=== PATIENT | male | born 1955 | race Caucasian/White ===

== ENCOUNTER 2017-12-13 09:29 | Outpatient (CLI) | payer BC | END 2017-12-13 09:30 | disposition critical access hospital (66) | LOC: EMS 09:29 | PROVIDERS: ATTEND Surgery | DX: R46.89 Other symptoms and signs involving appearance and behavior (principal) | CPT/HCPCS: A0425; A0429 ==

== ENCOUNTER 2017-12-13 09:35 | Emergency (ER) | payer BC ==
[2017-12-13] MEDS ORDERED: HALOPERIDOL 5 MG/ML VIAL IM STA ×2 (09:38→12:20)
[2017-12-13] MEDS ORDERED: LORazepam 2 MG/ML VIAL IM STA ×2 (09:38→12:20)
[2017-12-13] MEDS ORDERED: KETAMINE 500 MG/10 ML VIAL IM STA (09:39)
[2017-12-13 10:01] LABS: BASOPHILS # (AUTO) 0.1 10^3/uL (0.0-0.1); BASOPHILS % (AUTO) 0.7 %; EOSINOPHILS # (AUTO) 0.1 10^3/uL (0.0-0.7); EOSINOPHILS % (AUTO) 0.7 %; HGB - HEMOGLOBIN 13.3 g/dL (14.0-18.0); LYMPHOCYTES # (AUTO) 1.3 10^3/uL (1.5-3.5); LYMPHOCYTES % (AUTO) 15.6 %; MEAN CORPUSCULAR HEMOGLOBIN 28.8 pg (27.0-31.0); MEAN CORPUSCULAR HGB CONC 33.9 g/dL (32.0-36.0); MEAN CORPUSCULAR VOLUME 84.9 fL (80.0-94.0); MEAN PLATELET VOLUME 8.1 fL (7.4-11.4); MONOCYTES # (AUTO) 0.5 10^3/uL (0.0-1.0); MONOCYTES % (AUTO) 6.2 %; NEUTROPHILS # (AUTO) 6.3 10^3/uL (1.5-6.6); NEUTROPHILS % (AUTO) 76.8 %; PLT - PLATELET COUNT 245 10^3/uL (130-450); RED BLOOD COUNT 4.61 10^6/uL (4.70-6.10); RED CELL DISTRIBUTION WIDTH 14.5 % (12.0-15.0); WHITE BLOOD COUNT 8.2 x10^3/uL (4.8-10.8)
--- NOTE | 2017-12-13 10:02 | ED Physician Documentation ---
PD HPI MHE - Stated complaint Stated Complaint: MHE - History obtained from History obtained from: EMS - History of Present Illness Primary symptom: Psychosis Timing - onset: Yesterday Pain level max: 0 Pain level now: 0 - Additional information Additional information: Per EMS, family has stated that the patient "had a psychotic break" in the past. Patient is calling people inappropriate names, such as the male medic being called "Nancy" and being the most beautiful woman he has ever seen. Also states that he wants to "fuck Nancy" referring to the male medic. Review of Systems Unable to obtain: AMS PD PAST MEDICAL HISTORY - Past Medical History Cardiovascular: Hypertension - Present Medications Home Medications: Ambulatory Orders Medication Instructions Recorded Confirmed Cetirizine HCl 10 mg PO DAILY 12/13/17 12/13/17 Ketoconazole [Ketoconazole] 1 applic TOP BID 12/13/17 12/13/17 Lansoprazole [Lansoprazole] 15 mg PO QDAC 12/13/17 12/13/17 Losartan Potassium [Cozaar] 100 mg PO DAILY 12/13/17 12/13/17 Meloxicam [Meloxicam] 15 mg PO DAILY 12/13/17 12/13/17 Tamsulosin [Flomax] 0.4 mg PO QDDINNER 12/13/17 12/13/17 Triamcinolone 0.1% Cream [Kenalog 1 applic TOP BID 12/13/17 12/13/17 0.1% Cream] Triamcinolone [Nasacort Aq] 2 sprays GISELLA DAILY 12/13/17 12/13/17 - Allergies Allergies/Adverse Reactions: Allergies Allergy/AdvReac Type Severity Reaction Status Date / Time Penicillins Allergy Severe Unknown Verified 12/13/17 10:17 ibuprofen Allergy Unknown Unknown Verified 12/13/17 10:17 benzonatate AdvReac Intermediate Emesis Verified 12/13/17 10:17 - Living Situation Living Situation: reports: With family Living Arrangement: reports: At home PD ED PE NORMAL - Vitals Vital signs reviewed: Yes - General General: Other (alert, not oriented to person, place or time.) - HEENT HEENT: PERRL, Moist mucous membranes - Neck Neck: Supple, no meningeal sign - Cardiac Cardiac: RRR - Respiratory Respiratory: No respiratory distress, Clear bilaterally - Abdomen Abdomen: Soft, Non tender, Non distended Results - Vitals Vitals: Vital Signs - 24 hr 12/13/17 12/13/17 12/13/17 09:35 10:12 13:06 Temperature 37.2 C Heart Rate 125 H 118 H 108 H Respiratory 20 19 20 Rate Blood Pressure 155/114 H 144/76 H O2 Saturation 94 99 100 12/13/17 12/13/17 12/13/17 13:20 13:24 14:22 Temperature Heart Rate 86 Respiratory 16 Rate Blood Pressure 125/70 O2 Saturation 78 L 98 98 12/13/17 12/13/17 14:41 17:53 Temperature Heart Rate 85 99 Respiratory 16 16 Rate Blood Pressure 127/62 145/75 H O2 Saturation 100 100 Oxygen O2 Source Room air - EKG (time done) 1307 Rate: Rate (enter#) (105) Rhythm: Sinus tachycardia [place]: Normal Intervals: Normal [place], Other (borderline QT prolongation 483) QRS: Normal Ischemia: Normal ST segments 1727 Rate: Rate (enter#) (101) Rhythm: Sinus tachycardia [place]: Normal Intervals: Normal [place] QRS: Normal Ischemia: Normal ST segments - Labs Labs: Laboratory Tests 12/13/17 12/13/17 12/13/17 09:56 09:56 10:00 WBC 8.2 RBC 4.61 L Hgb 13.3 L Hct 39.2 L MCV 84.9 MCH 28.8 MCHC 33.9 RDW 14.5 Plt Count 245 MPV 8.1 Neut # (Auto) 6.3 Lymph # (Auto) 1.3 L [place] # (Auto) 0.5 Eos # (Auto) 0.1 Baso # (Auto) 0.1 Absolute Nucleated RBC 0.00 Nucleated RBC % 0.0 Sodium 134 L Potassium 3.3 L Chloride 103 Carbon Dioxide 22 Anion Gap 9.0 BUN 22 H Creatinine 0.9 Estimated GFR (MDRD) 86 L Glucose 143 H Calcium 8.9 Total Bilirubin 1.0 AST 32 ALT 26 Alkaline Phosphatase 54 Total Protein 7.2 Albumin 4.2 Globulin 3.0 Albumin/Globulin Ratio 1.4 Lipase 26 Urine Color DARK YELLOW Urine Clarity CLEAR Urine pH 5.0 Ur Specific [place] >=1.030 H Urine Protein NEGATIVE Urine Glucose (UA) NEGATIVE Urine Ketones TRACE Urine Occult Blood NEGATIVE Urine Nitrite NEGATIVE Urine Bilirubin NEGATIVE Urine Urobilinogen 0.2 (NORMAL) Ur Leukocyte Esterase NEGATIVE Ur Microscopic Review NOT INDICATED Urine Culture Comments NOT INDICATED Salicylates < 6.0 Urine Opiates Screen NEGATIVE Ur Oxycodone Screen NEGATIVE Urine Methadone Screen NEGATIVE Ur Propoxyphene Screen NEGATIVE Acetaminophen < 10 L Ur Barbiturates Screen NEGATIVE Ur Tricyclics Screen NEGATIVE Ur Phencyclidine Scrn NEGATIVE Ur Amphetamine Screen NEGATIVE U Methamphetamines Scrn NEGATIVE U Benzodiazepines Scrn NEGATIVE Urine Cocaine Screen NEGATIVE U Cannabinoids Screen NEGATIVE Ethyl Alcohol < 5.0 - Rads (name of study) head CT Radiology: Prelim report reviewed, EMP read contemporaneously, See rad report ( no acute abnormalities) duplex US LLE Radiology: Prelim report reviewed, EMP read contemporaneously, See rad report ( no dvt) PD MEDICAL DECISION MAKING - ED course Complexity details: reviewed results, re-evaluated patient, considered differential, d/w family, d/w reimbursement consultant ED course: Patient is a 62-year-old male with what appears to be an acute psychosis. He is actively hallucinating in the emergency department. Initially ketamine was utilized so that we can obtain blood work and urine. He awoke and is still significantly altered and hallucinating. Discussed with his Zakiya who states that this happened once approximately 20-30 years ago when he was "taken away in a straight jacket". She denies any drug use or alcohol use. Patient is medically clear for psychiatric care. [facility] was consulted, Jacki who came and evaluated the patient in the emergency department. Patient slept in the emergency department after receiving Haldol and Ativan. He did awake and was more oriented, but is still very confused and had to ask me my name approximately 4 times during our brief conversation. He also states that he has been treated several times in the past for bipolar disorder. Likely that this episode represented a manic episode. Patient was detained by Jacki, the [facility]. He was accepted to [facility] by Dr. Isaias Bermudez @ [id number]. COBRA forms completed. Patient transferred This document was made in part using voice recognition software. While efforts are made to proofread this document, sound alike and grammatical errors may occur. Departure - Departure Disposition: 65 Psych Hosp/Unit DC/Xfer Clinical Impression: Hallucinations Psychosis Qualifiers: Psychosis type: unspecified psychosis type Qualified Code(s): F29 - Unspecified psychosis not due to a substance or known physiological condition Condition: Stable
[2017-12-13 10:16] LABS: MUDS CUTOFF CONCENTRATIONS CUTOFF CONC BELOW:
[2017-12-13 10:17] LABS: ALBUMIN 4.2 g/dL (3.2-5.5); ALBUMIN/GLOBULIN RATIO 1.4 (1.0-2.2); ALKALINE PHOSPHATASE 54 IU/L (42-121); ALT ALANINE AMINOTRANSFERASE 26 IU/L (10-60); AST ASPARTATE AMINOTRANSFERASE 32 IU/L (10-42); BUN - BLOOD UREA NITROGEN 22 mg/dL (6-20); CALCIUM 8.9 mg/dL (8.5-10.3); CARBON DIOXIDE - CO2 22 mmol/L (21-32); CHLORIDE 103 mmol/L (101-111); CREATININE 0.9 mg/dL (0.6-1.2); GFR - MDRD 86 (>89); GLUCOSE 143 mg/dL (70-100); LIPASE 26 U/L (22-51); SALICYLATE < 6.0 mg/dL; SODIUM 134 mmol/L (135-145); TOTAL PROTEIN 7.2 g/dL (6.7-8.2)
[2017-12-13 10:18] LABS: ACETAMINOPHEN < 10 ug/mL (10-30)
[2017-12-13 10:20] LABS: BILIRUBIN,URINE NEGATIVE (NEGATIVE); GLUCOSE, URINE (UA) NEGATIVE (NEGATIVE); KETONES,URINE (UA) TRACE mg/dL (NEGATIVE); LEUKOCYTE ESTERASE, URINE NEGATIVE (NEGATIVE); NITRITE,URINE NEGATIVE (NEGATIVE); OCCULT BLOOD,URINE NEGATIVE (NEGATIVE); PROTEIN,URINE NEGATIVE (NEGATIVE); UROBILINOGEN,URINE 0.2 (NORMAL) E.U./dL (NORMAL)
[2017-12-13 10:25] LABS: CLARITY,URINE CLEAR (CLEAR)
[2017-12-13 10:44] LABS: AMPHETAMINE SCREEN,URINE NEGATIVE (NEGATIVE); BENZODIAZEPINES SCREEN, URINE NEGATIVE (NEGATIVE); COCAINE SCREEN URINE NEGATIVE (NEGATIVE); METHADONE SCREEN, URINE NEGATIVE (NEGATIVE); METHAMPHETAMINES SCREEN, URINE NEGATIVE (NEGATIVE); OPIATE SCREEN, URINE NEGATIVE (NEGATIVE); OXYCODONE SCREEN, URINE NEGATIVE (NEGATIVE); PROPOXYPHENE SCREEN, URINE NEGATIVE (NEGATIVE); TRICYCLIC ANTIDEPRESSANT,URINE NEGATIVE (NEGATIVE)
--- NOTE | 2017-12-13 10:58 | CT Report ---
EXAM: CT HEAD EXAM DATE: 12/13/2017 10:50 AM. CLINICAL HISTORY: Altered mental status, confusion. COMPARISON: None available. TECHNIQUE: Multiaxial CT images were obtained from the foramen magnum to the vertex. Reformats: Coron al. IV contrast: None. In accordance with CT protocol optimization, one or more of the following dose reduction techniques w ere utilized for this exam: automated exposure control, adjustment of mA and/or KV based on patient s ize, or use of iterative reconstructive technique. FINDINGS: Parenchyma: No intraparenchymal hemorrhage. No evidence of mass, midline shift, or CT findings of inf arction. Tellez-white differentiation is distinct. Extraaxial Spaces: Normal for age. No subdural or epidural collections identified. Ventricles: Normal in size and position. Sinuses and Orbits: Imaged paranasal sinuses, orbits, and mastoids show no significant abnormality. Bones: No evidence of fracture or calvarial defect. Other: None. IMPRESSION: No acute intracranial abnormality. [facility] Referring Provider Line: [phone] SITE ID: [id number]
[2017-12-13] MEDS ORDERED: POTASSIUM BICARB 25 MEQ TABLET PO STA (17:17)
--- NOTE | 2017-12-13 19:02 | Ultrasound Report ---
LEFT LOWER EXTREMITY VENOUS SONOGRAM: 12/13/2017 HISTORY: Left lower extremity swelling after total knee replacement. TECHNIQUE: Real-time scanning by the digital content specialist with saved static images reviewed. FINDINGS: The veins of the left lower extremity including the common femoral, femoral, deep femoral, popliteal, posterior tibial, and peroneal demonstrate normal phasicity, compressibility and augmentation. Normal flow by Doppler imaging. No evidence of venous thrombosis. IMPRESSION: NEGATIVE FOR DEEP VENOUS THROMBOSIS LEFT LOWER EXTREMITY. TD: 12/13/2017 16:10
[2017-12-13 20:20] VITALS: BP 130/89
== END 2017-12-13 20:58 ==
LOC: EDUNIT# → ED 09:35
DX: R44.1 Visual hallucinations (principal); F29 Unspecified psychosis not due to a substance or known physiological condition; I10 Essential (primary) hypertension
CPT/HCPCS: 36415; 51701; 70450; 80053; 80306; 80307; 80320; 80329; 81003; 83690; 85025; 93005; 93971; 96372; 99285; A9270; J2060; 81001; 87086

== ENCOUNTER 2017-12-13 21:02 | Outpatient (CLI) | payer BC | END 2017-12-13 21:03 | LOC: EMS 21:02 | PROVIDERS: ATTEND Surgery | DX: R46.89 Other symptoms and signs involving appearance and behavior (principal) | CPT/HCPCS: A0170; A0425; A0428 ==

== ENCOUNTER 2018-01-04 17:30 | Outpatient (CLI) | payer BC | END 2018-01-04 17:31 | disposition home or self-care (01) | LOC: LAB.R 17:30 | PROVIDERS: ATTEND Family Medicine | DX: N39.0 Urinary tract infection, site not specified (principal) | CPT/HCPCS: 87086; 87181 ==

== ENCOUNTER 2018-01-26 19:57 | Outpatient (CLI) | payer BC, OTHER | END 2018-01-26 19:58 | disposition critical access hospital (66) | LOC: EMS 19:57 | PROVIDERS: ATTEND Surgery | DX: R41.82 Altered mental status, unspecified (principal); R46.89 Other symptoms and signs involving appearance and behavior | CPT/HCPCS: A0425; A0429 ==

== ENCOUNTER 2018-01-26 20:01 | Emergency (ER) | payer OTHER, BC ==
[2018-01-26] MEDS ORDERED: OLANZapine 10 MG VIAL IM STA (20:19)
[2018-01-26 20:22] LABS: BASOPHILS # (AUTO) 0.1 10^3/uL (0.0-0.1); BASOPHILS % (AUTO) 0.7 %; EOSINOPHILS # (AUTO) 0.1 10^3/uL (0.0-0.7); EOSINOPHILS % (AUTO) 1.4 %; HGB - HEMOGLOBIN 13.3 g/dL (14.0-18.0); LYMPHOCYTES # (AUTO) 1.5 10^3/uL (1.5-3.5); LYMPHOCYTES % (AUTO) 19.1 %; MEAN CORPUSCULAR HEMOGLOBIN 28.7 pg (27.0-31.0); MEAN CORPUSCULAR HGB CONC 34.1 g/dL (32.0-36.0); MEAN PLATELET VOLUME 8.3 fL (7.4-11.4); MONOCYTES # (AUTO) 0.7 10^3/uL (0.0-1.0); MONOCYTES % (AUTO) 8.1 %; NEUTROPHILS # (AUTO) 5.7 10^3/uL (1.5-6.6); NEUTROPHILS % (AUTO) 70.7 %; PLT - PLATELET COUNT 206 10^3/uL (130-450); RED BLOOD COUNT 4.63 10^6/uL (4.70-6.10); RED CELL DISTRIBUTION WIDTH 16.4 % (12.0-15.0); WHITE BLOOD COUNT 8.1 x10^3/uL (4.8-10.8)
[2018-01-26 20:33] LABS: ALBUMIN 4.5 g/dL (3.2-5.5); ALBUMIN/GLOBULIN RATIO 1.6 (1.0-2.2); ALKALINE PHOSPHATASE 56 IU/L (42-121); ALT ALANINE AMINOTRANSFERASE 19 IU/L (10-60); AST ASPARTATE AMINOTRANSFERASE 23 IU/L (10-42); BILIRUBIN,TOTAL 0.9 mg/dL (0.2-1.0); BUN - BLOOD UREA NITROGEN 13 mg/dL (6-20); CALCIUM 9.3 mg/dL (8.5-10.3); CARBON DIOXIDE - CO2 25 mmol/L (21-32); CHLORIDE 103 mmol/L (101-111); CREATININE 0.8 mg/dL (0.6-1.2); GFR - MDRD 98 (>89); GLUCOSE 105 mg/dL (70-100); LIPASE 34 U/L (22-51); SODIUM 136 mmol/L (135-145); TOTAL PROTEIN 7.4 g/dL (6.7-8.2)
[2018-01-26] MEDS ORDERED: OLANZapine 10 MG VIAL IM ONE (20:33)
[2018-01-26] MEDS ORDERED: WATER FOR INJECTION,STERILE 10 ML ONE (20:33)
[2018-01-26] MEDS ORDERED: LORazepam 2 MG/ML VIAL IM STA (21:35)
[2018-01-26] MEDS ORDERED: LORazepam 2 MG/ML VIAL ONE (21:49)
[2018-01-26] MEDS: KETAMINE 500 MG/10 ML VIAL IM STA (22:00)
[2018-01-26 22:25] LABS: MUDS CUTOFF CONCENTRATIONS CUTOFF CONC BELOW:
[2018-01-26 22:29] LABS: BILIRUBIN,URINE NEGATIVE (NEGATIVE); GLUCOSE, URINE (UA) NEGATIVE (NEGATIVE); KETONES,URINE (UA) NEGATIVE (NEGATIVE); LEUKOCYTE ESTERASE, URINE NEGATIVE (NEGATIVE); NITRITE,URINE NEGATIVE (NEGATIVE); OCCULT BLOOD,URINE NEGATIVE (NEGATIVE); PROTEIN,URINE NEGATIVE (NEGATIVE); UROBILINOGEN,URINE 0.2 (NORMAL) E.U./dL (NORMAL)
[2018-01-26 22:34] LABS: CLARITY,URINE CLEAR (CLEAR)
[2018-01-26 22:39] LABS: AMPHETAMINE SCREEN,URINE NEGATIVE (NEGATIVE); BENZODIAZEPINES SCREEN, URINE NEGATIVE (NEGATIVE); COCAINE SCREEN URINE NEGATIVE (NEGATIVE); METHADONE SCREEN, URINE NEGATIVE (NEGATIVE); METHAMPHETAMINES SCREEN, URINE NEGATIVE (NEGATIVE); OPIATE SCREEN, URINE NEGATIVE (NEGATIVE); OXYCODONE SCREEN, URINE NEGATIVE (NEGATIVE); PROPOXYPHENE SCREEN, URINE NEGATIVE (NEGATIVE); TRICYCLIC ANTIDEPRESSANT,URINE NEGATIVE (NEGATIVE)
--- NOTE | 2018-01-26 22:44 | ED Physician Documentation ---
PD HPI MHE - Stated complaint Stated Complaint: MHE - Chief complaint Chief Complaint: MHE - History obtained from History obtained from: Police - History of Present Illness Primary symptom: Aggressive behavior Timing - onset: Today Contributing factors: Off meds Recently seen: Not recently seen - Additional information Additional information: Patient is a 62 year male who was brought in by ems for psychosis and aggressive behavior. According to ems police were called by the neighbor because the patient was calling out. When police arrived patient was non sensical and borderline aggressive threatening to take the police's gun. Upon arrival to the emergency department patient was psychotic say "IM not god" im richard twain, and repetitively asking for Madelyn. states that the patient was recently hospitalized at [facility] and has not been taking his meds. Review of Systems Unable to obtain: AMS, Confused PD PAST MEDICAL HISTORY - Past Medical History Cardiovascular: Hypertension Respiratory: Sleep apnea - Past Surgical History Past Surgical History: Yes Ortho: Knee replacement - Present Medications Home Medications: Ambulatory Orders Medication Instructions Recorded Confirmed Cetirizine HCl 10 mg PO DAILY 12/13/17 12/13/17 Ketoconazole [Ketoconazole] 1 applic TOP BID 12/13/17 12/13/17 Lansoprazole [Lansoprazole] 15 mg PO QDAC 12/13/17 12/13/17 Losartan Potassium [Cozaar] 100 mg PO DAILY 12/13/17 12/13/17 Meloxicam [Meloxicam] 15 mg PO DAILY 12/13/17 12/13/17 Tamsulosin [Flomax] 0.4 mg PO QDDINNER 12/13/17 12/13/17 Triamcinolone 0.1% Cream [Kenalog 1 applic TOP BID 12/13/17 12/13/17 0.1% Cream] Triamcinolone [Nasacort Aq] 2 sprays GISELLA DAILY 12/13/17 12/13/17 - Allergies Allergies/Adverse Reactions: Allergies Allergy/AdvReac Type Severity Reaction Status Date / Time Penicillins Allergy Severe Unknown Verified 12/13/17 10:17 ibuprofen Allergy Unknown Unknown Verified 12/13/17 10:17 benzonatate AdvReac Intermediate Emesis Verified 12/13/17 10:17 - Social History Does the pt smoke?: No Smoking Status: Never smoker Does the pt drink ETOH?: No Does the pt have substance abuse?: No - Immunizations Immunizations are current?: Yes - POLST Patient has POLST: No PD ED PE NORMAL - Vitals Vital signs reviewed: Yes - General General: Well developed/nourished - HEENT HEENT: Atraumatic - Cardiac Cardiac: RRR - Respiratory Respiratory: No respiratory distress - Abdomen Abdomen: Non distended PD ED PE EXPANDED - General General: Alert - Extremities Extremities: Pedal edema bilateral - Psych Psych: Combative, Manic, Delusions Results - Vitals Vitals: Vital Signs - 24 hr 01/26/18 01/26/18 01/26/18 20:06 22:05 22:30 Temperature 36.9 C Heart Rate 85 124 H 101 H Respiratory 20 35 H 24 Rate Blood Pressure 139/99 H 158/103 H 126/83 H O2 Saturation 100 100 97 01/26/18 01/27/18 01/27/18 23:00 00:00 01:00 Temperature Heart Rate 86 89 79 Respiratory 18 19 18 Rate Blood Pressure 122/84 H 121/87 H 114/75 O2 Saturation 100 100 98 01/27/18 01/27/18 01/27/18 02:27 03:30 05:02 Temperature Heart Rate 77 80 77 Respiratory 18 18 18 Rate Blood Pressure 124/88 H 124/85 H 124/85 H O2 Saturation 99 98 98 Oxygen O2 Source Room air - Labs Labs: Laboratory Tests 01/26/18 01/26/18 01/26/18 20:16 20:16 20:16 WBC 8.1 RBC 4.63 L Hgb 13.3 L Hct 38.9 L MCV 84.0 MCH 28.7 MCHC 34.1 RDW 16.4 H Plt Count 206 MPV 8.3 Neut # (Auto) 5.7 Lymph # (Auto) 1.5 [place] # (Auto) 0.7 Eos # (Auto) 0.1 Baso # (Auto) 0.1 Absolute Nucleated RBC 0.00 Nucleated RBC % 0.0 Sodium 136 Potassium 4.1 Chloride 103 Carbon Dioxide 25 Anion Gap 8.0 BUN 13 Creatinine 0.8 Estimated GFR (MDRD) 98 Glucose 105 H Lactic Acid 2.2 Calcium 9.3 Total Bilirubin 0.9 AST 23 ALT 19 Alkaline Phosphatase 56 Total Protein 7.4 Albumin 4.5 Globulin 2.9 Albumin/Globulin Ratio 1.6 Lipase 34 Urine Color Urine Clarity Urine pH Ur Specific [place] Urine Protein Urine Glucose (UA) Urine Ketones Urine Occult Blood Urine Nitrite Urine Bilirubin Urine Urobilinogen Ur Leukocyte Esterase Ur Microscopic Review Urine Culture Comments Urine Opiates Screen Ur Oxycodone Screen Urine Methadone Screen Ur Propoxyphene Screen Ur Barbiturates Screen Ur Tricyclics Screen Ur Phencyclidine Scrn Ur Amphetamine Screen U Methamphetamines Scrn U Benzodiazepines Scrn Urine Cocaine Screen U Cannabinoids Screen Ethyl Alcohol < 5.0 01/26/18 01/26/18 22:23 23:25 WBC RBC Hgb Hct MCV MCH MCHC RDW Plt Count MPV Neut # (Auto) Lymph # (Auto) [place] # (Auto) Eos # (Auto) Baso # (Auto) Absolute Nucleated RBC Nucleated RBC % Sodium Potassium Chloride Carbon Dioxide Anion Gap BUN Creatinine Estimated GFR (MDRD) Glucose Lactic Acid 1.1 Calcium Total Bilirubin AST ALT Alkaline Phosphatase Total Protein Albumin Globulin Albumin/Globulin Ratio Lipase Urine Color YELLOW Urine Clarity CLEAR Urine pH 6.0 Ur Specific [place] 1.015 Urine Protein NEGATIVE Urine Glucose (UA) NEGATIVE Urine Ketones NEGATIVE Urine Occult Blood NEGATIVE Urine Nitrite NEGATIVE Urine Bilirubin NEGATIVE Urine Urobilinogen 0.2 (NORMAL) Ur Leukocyte Esterase NEGATIVE Ur Microscopic Review NOT INDICATED Urine Culture Comments NOT INDICATED Urine Opiates Screen NEGATIVE Ur Oxycodone Screen NEGATIVE Urine Methadone Screen NEGATIVE Ur Propoxyphene Screen NEGATIVE Ur Barbiturates Screen NEGATIVE Ur Tricyclics Screen NEGATIVE Ur Phencyclidine Scrn NEGATIVE Ur Amphetamine Screen NEGATIVE U Methamphetamines Scrn NEGATIVE U Benzodiazepines Scrn NEGATIVE Urine Cocaine Screen NEGATIVE U Cannabinoids Screen NEGATIVE Ethyl Alcohol PD MEDICAL DECISION MAKING - ED course Complexity details: reviewed old records, reviewed results, re-evaluated patient , considered differential, d/w patient, d/w family, d/w health and wellness sales consultant ED course: Patient was seen and examined at bedside. Patient was seen and examined at bedside. Patient was aggressive and threatening staff as well as his . Patient was placed in restraints for the safety of others and treated with zyprexa 10mg IM. labs were drawn. Patient again became aggressive and was able to get out of one of his restraints. Patient took the cane from his and broke the computer taking the mouse. Patient was threatening to hurt anyone who came near and to kill his . Police were called in and patient was again physically restrained. Patient was treated with ketamine 200mg and ativan mg IM. patient was placed in 4 point restraints. When patient was sedated urinalysis was collected and sent. patient's diagnostics were within normal limits and patient was medically cleared. [facility] was dispatched and came to evaluate the patient. Patient was deemed necessary for inpatient care. Patient was accepted by Dr. Allen at [facility]. Arrangements were made for transfer. Patient was treated with additional ketamine just before leaving. - Sepsis Event Vital Signs: Vital Signs - 24 hr 01/26/18 01/26/18 01/26/18 20:06 22:05 22:30 Temperature 36.9 C Heart Rate 85 124 H 101 H Respiratory 20 35 H 24 Rate Blood Pressure 139/99 H 158/103 H 126/83 H O2 Saturation 100 100 97 01/26/18 01/27/18 01/27/18 23:00 00:00 01:00 Temperature Heart Rate 86 89 79 Respiratory 18 19 18 Rate Blood Pressure 122/84 H 121/87 H 114/75 O2 Saturation 100 100 98 01/27/18 01/27/18 01/27/18 02:27 03:30 05:02 Temperature Heart Rate 77 80 77 Respiratory 18 18 18 Rate Blood Pressure 124/88 H 124/85 H 124/85 H O2 Saturation 99 98 98 Oxygen O2 Source Room air Departure - Departure Disposition: 65 Psych Hosp/Unit DC/Xfer Clinical Impression: Psychosis, Hallucinations Condition: Stable
[2018-01-27] MEDS: KETAMINE 500 MG/10 ML VIAL IM STA (01:22)
[2018-01-27] MEDS ORDERED: KETAMINE 500 MG/10 ML VIAL IM STA ×2 (01:23→06:01)
[2018-01-27 06:03] VITALS: BP 128/93
[2018-01-27] MEDS ORDERED: HALOPERIDOL 5 MG/ML VIAL IM STA (06:11)
== END 2018-01-27 06:27 ==
LOC: EDUNIT# → ED 20:01
DX: F29 Unspecified psychosis not due to a substance or known physiological condition (principal); R44.3 Hallucinations, unspecified; Z78.1 Physical restraint status; Z91.14 Patient's other noncompliance with medication regimen
CPT/HCPCS: 36415; 80053; 80306; 80320; 81003; 83605; 83690; 85025; 96372; 99285; J2060; 81001; 87086

== ENCOUNTER 2018-04-26 08:00 | Outpatient (CLI) | payer BC ==
[2018-04-26 18:46] LABS: BASOPHILS # (AUTO) 0.1 10^3/uL (0.0-0.1); BASOPHILS % (AUTO) 0.6 %; EOSINOPHILS # (AUTO) 0.1 10^3/uL (0.0-0.7); EOSINOPHILS % (AUTO) 1.5 %; HGB - HEMOGLOBIN 14.3 g/dL (14.0-18.0); LYMPHOCYTES # (AUTO) 1.3 10^3/uL (1.5-3.5); LYMPHOCYTES % (AUTO) 15.6 %; MEAN CORPUSCULAR HEMOGLOBIN 30.2 pg (27.0-31.0); MEAN CORPUSCULAR HGB CONC 34.1 g/dL (32.0-36.0); MEAN CORPUSCULAR VOLUME 88.5 fL (80.0-94.0); MONOCYTES # (AUTO) 0.4 10^3/uL (0.0-1.0); MONOCYTES % (AUTO) 5.5 %; NEUTROPHILS # (AUTO) 6.2 10^3/uL (1.5-6.6); NEUTROPHILS % (AUTO) 76.8 %; PLT - PLATELET COUNT 150 10^3/uL (130-450); RED BLOOD COUNT 4.74 10^6/uL (4.70-6.10); RED CELL DISTRIBUTION WIDTH 14.9 % (12.0-15.0)
[2018-04-26 19:04] LABS: ALBUMIN 4.3 g/dL (3.2-5.5); ALBUMIN/GLOBULIN RATIO 1.7 (1.0-2.2); BILIRUBIN,TOTAL 0.9 mg/dL (0.2-1.0); CALCIUM 9.8 mg/dL (8.5-10.3); CREATININE 0.9 mg/dL (0.6-1.2); TOTAL PROTEIN 6.9 g/dL (6.7-8.2)
== END 2018-04-26 08:01 | disposition home or self-care (01) ==
LOC: LAB.WCP 08:00
PROVIDERS: ATTEND Family Medicine
DX: R10.9 Unspecified abdominal pain (principal)
CPT/HCPCS: 36415; 80053; 82150; 83690; 85025

== ENCOUNTER 2018-08-01 09:20 | Day surgery (SDC) | payer BC, OTHER ==
[2018-08-01] MEDS ORDERED: LACTATED RINGERS 1,000 ML IV ONE ×2 (09:29→11:04)
[2018-08-01] MEDS ORDERED: BENZOCAINE/TETRACAINE/BUTAMBEN 20 GM ONE (10:06)
[2018-08-01] MEDS ORDERED: LIDO GARGLE 30 ML BOTTLE ONE (10:06)
[2018-08-01] MEDS ORDERED: fentaNYL 250 MCG/5 ML VIAL IVP ONE (10:08)
[2018-08-01] MEDS ORDERED: MIDAZOLAM 2 MG/2 ML VIAL IVP ONE (10:08)
[2018-08-01] MEDS ORDERED: LIDO GARGLE 30 ML BOTTLE PO ONE (10:22)
[2018-08-01 11:19] VITALS: BP 112/73
== END 2018-08-01 09:21 | disposition home or self-care (01) ==
LOC: SDS 09:20
PROVIDERS: ATTEND Surgery
PROC: 0DJD8ZZ Inspection of Lower Intestinal Tract, Via Natural or Artificial Opening Endoscopic (ICD-10-PCS; principal; 2018-08-01 10:30)
PROC: 0DJ08ZZ Inspection of Upper Intestinal Tract, Via Natural or Artificial Opening Endoscopic (ICD-10-PCS; 2018-08-01 10:30)
DX: R10.32 Left lower quadrant pain (principal); K64.8 Other hemorrhoids; K57.30 Diverticulosis of large intestine without perforation or abscess without bleeding; K21.9 Gastro-esophageal reflux disease without esophagitis; I10 Essential (primary) hypertension; E66.9 Obesity, unspecified; Z68.32 Body mass index [BMI] 32.0-32.9, adult
CPT/HCPCS: 43235; 45378; A9270; J3010; J7120

== ENCOUNTER 2018-09-08 11:15 | Outpatient (CLI) | payer OTHER ==
[2018-09-08 18:59] LABS: BASOPHILS % (AUTO) 0.7 %; EOSINOPHILS # (AUTO) 0.2 10^3/uL (0.0-0.7); EOSINOPHILS % (AUTO) 2.6 %; HGB - HEMOGLOBIN 14.2 g/dL (14.0-18.0); LYMPHOCYTES # (AUTO) 1.1 10^3/uL (1.5-3.5); LYMPHOCYTES % (AUTO) 16.9 %; MEAN CORPUSCULAR HEMOGLOBIN 30.3 pg (27.0-31.0); MEAN CORPUSCULAR HGB CONC 33.1 g/dL (32.0-36.0); MEAN CORPUSCULAR VOLUME 91.8 fL (80.0-94.0); MEAN PLATELET VOLUME 9.3 fL (7.4-11.4); MONOCYTES # (AUTO) 0.4 10^3/uL (0.0-1.0); MONOCYTES % (AUTO) 6.4 %; NEUTROPHILS # (AUTO) 4.7 10^3/uL (1.5-6.6); NEUTROPHILS % (AUTO) 73.4 %; PLT - PLATELET COUNT 162 10^3/uL (130-450); RED CELL DISTRIBUTION WIDTH 13.7 % (12.0-15.0); WHITE BLOOD COUNT 6.4 x10^3/uL (4.8-10.8)
[2018-09-08 19:00] LABS: INR 1.1 (0.8-1.2); PT - PROTHROMBIN TIME 12.3 secs (9.9-12.6)
[2018-09-08 19:17] LABS: ALBUMIN 4.2 g/dL (3.2-5.5); ALBUMIN/GLOBULIN RATIO 1.6 (1.0-2.2); BILIRUBIN,TOTAL 0.8 mg/dL (0.2-1.0); CALCIUM 9.6 mg/dL (8.5-10.3); CREATININE 1.1 mg/dL (0.6-1.2); TOTAL PROTEIN 6.8 g/dL (6.7-8.2)
== END 2018-09-08 11:16 | disposition home or self-care (01) ==
LOC: LAB.WCP 11:15
PROVIDERS: ATTEND Family Medicine
DX: I10 Essential (primary) hypertension (principal); M17.11 Unilateral primary osteoarthritis, right knee
CPT/HCPCS: 36415; 80053; 85025; 85610

== ENCOUNTER 2019-03-22 13:44 | Outpatient (CLI) | payer OTHER, BC ==
[2019-03-22 19:16] LABS: ALBUMIN 4.4 g/dL (3.2-5.5); ALBUMIN/GLOBULIN RATIO 1.8 (1.0-2.2); BILIRUBIN,TOTAL 0.7 mg/dL (0.2-1.0); CALCIUM 9.6 mg/dL (8.5-10.3); TOTAL PROTEIN 6.9 g/dL (6.7-8.2)
== END 2019-03-22 23:59 | disposition home or self-care (01) ==
LOC: LAB.WCP 13:44
PROVIDERS: ATTEND Family Medicine
DX: Z12.5 Encounter for screening for malignant neoplasm of prostate (principal); I10 Essential (primary) hypertension
CPT/HCPCS: 36415; 80053; 84153

== ENCOUNTER 2023-07-09 10:11 | Emergency (ER) | payer BC, OTHER ==
[2023-07-09 10:25] VITALS: BP 149/119; O2SAT 97
--- NOTE | 2023-07-09 10:28 | ED Physician Documentation ---
PD HPI MALE - Stated complaint Stated Complaint: FEVER,STOMACH PX, - Chief complaint Chief Complaint: Abd Pain - History obtained from History obtained from: Patient - History of Present Illness Timing - onset: How many days ago (several) Timing - duration: Days Timing - details: Gradual onset, Still present Associated symptoms: Dysuria, Urinary frequency, Back pain. No: Hematuria, Genital sore / lesion Recently seen: Not recently seen Review of Systems Constitutional: denies: Fever, Chills : reports: Dysuria, Frequency Skin: denies: Rash, Lesions PD PAST MEDICAL HISTORY - Past Medical History Cardiovascular: Hypertension Respiratory: Sleep apnea - Past Surgical History Past Surgical History: Yes Ortho: Knee replacement - Present Medications Home Medications: Ambulatory Orders Medication Instructions Recorded Confirmed Losartan Potassium [Cozaar] 100 mg PO DAILY 12/13/17 08/01/18 Meloxicam 15 mg PO DAILY 12/13/17 08/01/18 [place] Carbonate 300 mg PO BID 07/29/18 08/01/18 Multivitamin [Multiple Vitamins] 1 each PO DAILY 07/29/18 08/01/18 Omeprazole 40 mg PO DAILY 07/29/18 08/01/18 diphenhydrAMINE [Benadryl] 25 mg PO HS 07/29/18 08/01/18 ziprasidone HCL [Ziprasidone HCl] 60 mg PO BID 07/29/18 08/01/18 Phenazopyridine HCl [Pyridium] 100 mg PO TID PRN #15 tablet 07/09/23 cephALEXin [Keflex] 500 mg PO TID #20 cap 07/09/23 - Allergies Allergies/Adverse Reactions: Allergies Allergy/AdvReac Type Severity Reaction Status Date / Time Penicillins Allergy Severe Unknown Verified 07/09/23 10:21 ibuprofen Allergy Unknown Unknown Verified 07/09/23 10:21 benzonatate AdvReac Intermediate Emesis Verified 07/09/23 10:21 - Social History Does the pt smoke?: No Smoking Status: Never smoker Does the pt drink ETOH?: No Does the pt have substance abuse?: No - Immunizations Immunizations are current?: Yes - POLST Patient has POLST: No PD ED PE NORMAL - Vitals Vital signs reviewed: Yes - General General: Alert and oriented X 3, No acute distress, Well developed/nourished - Male Male : Deferred - Back Back: No CVA TTP - Derm Derm: Normal color, Warm and dry - Neuro Neuro: Alert and oriented X 3 Results - Vitals Vitals: Vital Signs - 24 hr 07/09/23 10:16 Temperature 36.7 C Heart Rate 93 Respiratory 18 Rate Blood Pressure 149/119 H O2 Saturation 97 Oxygen O2 Source Room air - Labs Labs: Laboratory Tests 07/09/23 10:35 Urine Color YELLOW Urine Clarity CLOUDY Urine pH 6.0 Ur Specific [place] 1.015 Urine Protein TRACE Urine Glucose (UA) NEGATIVE Urine Ketones NEGATIVE Urine Occult Blood MODERATE H Urine Nitrite POSITIVE H Urine Bilirubin NEGATIVE Urine Urobilinogen 0.2 (NORMAL) Ur Leukocyte Esterase LARGE H Urine RBC 0-5 Urine WBC >25 H Urine WBC Clumps PRESENT Ur Epithelial Cells RARE Renal Tubular Ur Squamous Epith Cells RARE Squamous Urine Bacteria Many H Ur Microscopic Review INDICATED Urine Culture Comments INDICATED PD Medical Decision Making - ED course Complexity details: reviewed results (UA very c/w UTI and corresponds to his symptoms. ), considered differential, d/w patient Departure - Departure Disposition: 01 Home, Self Care Clinical Impression: Dysuria, UTI (urinary tract infection) Condition: Stable Record reviewed to determine appropriate education?: Yes Instructions: ED UTI Cystitis Male Prescriptions: cephALEXin [Keflex] 500 mg PO TID #20 cap Phenazopyridine HCl [Pyridium] 100 mg PO TID PRN #15 tablet PRN Reason: Abdominal Pain Comments: Your urine does look like there is an infection to it which correlates with your symptoms. This is presumably the cause of your fevers and not feeling well. We can treat this with cephalexin antibiotic 3 times a day for a week. You can also use phenazopyridine 3 times daily for the next 3 to 5 days if needed for urinary discomfort. It will turn your urine will orange-colored and is largely to decrease the irritation. Stay well-hydrated. Continue your other usual medicines. You can use Tylenol if needed for fevers or pains. Bladder infection's are relatively common. We will do a culture of the urine and if the germ causing it needs a different antibiotic than the one chosen, we will call you and discuss changing. This only happens about 1 out of 10 times and will get the culture results in about 2 days. If you do not hear from us then no changes needed. I would anticipate improvement over the next few days and resolution over 3 to 5 days. Recheck if still symptoms after that point or if you are feeling worse in the meantime. I sent your prescription to [facility] pharmacy. Forms: PCP List Discharge Date/Time: 07/09/23 11:08
[2023-07-09 10:43] LABS: BILIRUBIN,URINE NEGATIVE (NEGATIVE); GLUCOSE, URINE (UA) NEGATIVE (NEGATIVE); KETONES,URINE (UA) NEGATIVE (NEGATIVE); LEUKOCYTE ESTERASE, URINE LARGE (NEGATIVE); NITRITE,URINE POSITIVE (NEGATIVE); OCCULT BLOOD,URINE MODERATE (NEGATIVE); PROTEIN,URINE TRACE mg/dL (NEGATIVE); UROBILINOGEN,URINE 0.2 (NORMAL) E.U./dL (NORMAL)
[2023-07-09 10:44] LABS: CLARITY,URINE CLOUDY (CLEAR)
[2023-07-09] MEDS ORDERED: PHENAZOPYRIDINE 100 MG TABLET PO STA (10:46)
[2023-07-09] MEDS ORDERED: cephALEXin 250 MG CAPSULE PO STA (10:46)
[2023-07-09 10:52] LABS: BACTERIA,URINE Many /HPF (None Seen); EPITHELIAL CELLS,UR RARE Renal Tubular /HPF (<= Few); RBC,URINE 0-5 /HPF (0-5); SQUAMOUS EPITHELIAL CELL,UR RARE Squamous (<= Few); WBC CLUMPS,URINE PRESENT; WBC,URINE >25 /HPF (0-3)
== END 2023-07-09 11:08 | disposition home or self-care (01) ==
LOC: ED 10:11
DX: N30.00 Acute cystitis without hematuria (principal)
CPT/HCPCS: 81001; 87086; 87181; 99283; A9270; 81003